=== PATIENT | male | born 1965 | race Caucasian/White ===

== ENCOUNTER 2020-03-17 12:07 | Emergency (ER) | payer SELFPAY ==
[~2020-03-17] VITALS: Ht 177.8 cm; Wt 142.9 kg
[~2020-03-17 12:07] MED LIST: AMLODIPINE BESY10 MG PO; ATENOLOL5 PO; CLONIDINE0.1 MG PO; HYDROCHLOROTH12.5 M1 PO; LOSARTAN POTAS100 MG PO; OXYCODONE; OXYCODONE ACETAMINOP PO; SIMVASTATIN40 MG PO; ZES20 PO; [UNRECOGNIZED DRUG - OTHER] PO
[2020-03-17 12:33] VITALS: BP 158/95; Ht 177.8 cm; Wt 142.9 kg
== END 2020-03-17 14:41 | disposition home or self-care (01) ==
LOC: ED 12:07
DX: S83.92XA Sprain of unspecified site of left knee, initial encounter (principal); I10 Essential (primary) hypertension; Z88.6 Allergy status to analgesic agent; X58.XXXA Exposure to other specified factors, initial encounter; Y93.89 Activity, other specified; Y92.89 Other specified places as the place of occurrence of the external cause; Y99.8 Other external cause status